=== PATIENT | male | born 1980 | race Caucasian/White ===

== ENCOUNTER 2019-09-05 12:59 | Emergency (ER) | payer OTHER ==
[2019-09-05] MEDS ORDERED: LIDOCAINE 1% W/ EPINEPHRINE 20 ML VIAL INJ ONE (13:20)
[2019-09-05] MEDS ORDERED: PLAIN PACKING STRIP 1 1 EA BTTL TOP ONE (13:27)
[2019-09-05 13:29] VITALS: BP 134/90; TEMP 100; O2SAT 96
[2019-09-05] MEDS ORDERED: CLINDAMYCIN HCL CAP 150 MG CAP PO ONE (13:32)
[2019-09-05] MEDS ORDERED: AMOXICILLIN & POT CLAVULANATE 875 MG TAB PO ONE (13:32)
[2019-09-05] MEDS ORDERED: cefTRIAXone SODIUM 1 GM VIAL IM ONE (13:32)
--- NOTE | 2019-09-05 13:41 | ED.PDOC ---
History of Present Illness - General Chief Complaint: Bite: Animal/Insect/Human Stated Complaint: Bug bite Time Seen by Provider: 09/05/19 13:03 Source: patient Exam Limitations: no limitations - History of Present Illness Initial Comments: The patient is a 38-year-old male presented emergency room secondary to erythema and swelling of the right arm around the right elbow. He was apparently stung by something 4 nights ago out on his porch. There is extending erythema proximally and distally. He does appear to be grossly neurovascularly intact. There is significant hardness in the area to indicate a possible abscess underlying. No drainage. He does have a low-grade fever of around 100 here. No nausea or vomiting. His primary care doctor wrote him for clindamycin which she has not started yet. Timing/Duration: other - 3 days Severity: moderate Improving Factors: nothing Worsening Factors: nothing Associated Symptoms: denies symptoms Allergies/Adverse Reactions: Allergies NO KNOWN ALLERGY Allergy (Verified 07/06/19 15:39) Home Medications: Ambulatory Orders Amoxicillin & Pot Clavulanate [Augmentin Tab] 875 mg PO BID #20 tab 09/05/19 Metformin HCl [Glucophage] 1,000 mg PO TID 09/05/19 Review of Systems - Review of Systems Constitutional: States: fever EENTM: States: no symptoms reported Respiratory: States: no symptoms reported Cardiology: States: no symptoms reported Gastrointestinal/Abdominal: States: no symptoms reported Genitourinary: States: no symptoms reported Musculoskeletal: States: see HPI Skin: States: see HPI Neurological: States: no symptoms reported Endocrine: States: no symptoms reported All other Systems: No Change from Baseline Past Medical History (General) - Patient Medical History Hx Asthma: No Hx Congestive Heart Failure: No Hx Pacemaker: No Hx Hypertension: No Hx Diabetes: Yes Hx Cancer: No Hx Hepatitis C: No Surgical History: no surgical history - Vaccination History Hx Tetanus, Diphtheria Vaccination: Yes Hx Influenza Vaccination: Yes Hx Pneumococcal Vaccination: No - Social History Hx Tobacco Use: Yes Hx Alcohol Use: Yes Hx Substance Use Treatment: No Hx Depression: No - Triage Comment ED Triage Comment: Right arm red, swollen, tender to touch, warm, and patient reports pain at >10 Family Medical History - Family History Mother Family History: Unknown Physical Exam - Physical Exam General Appearance: Alert, Comfortable, No apparent distress Eye Exam: bilateral normal Ears, Nose, Throat: hearing grossly normal, normal pharynx Neck: full range of motion Respiratory: no respiratory distress, no accessory muscle use Cardiovascular/Chest: normal peripheral pulses, no edema Peripheral Pulses: radial,right: 2+, radial,left: 2+ Gastrointestinal/Abdominal: other - Obese Rectal Exam: deferred Extremity: normal range of motion, no pedal edema, normal capillary refill Neurologic: deck hand II-XII nml as tested, alert, normal mood/affect, oriented x 3 Skin Exam: other - Erythema and swelling to the right upper extremity around the elbow. No evidence of any involvement of the elbow joint itself. Comments: Vital Signs - 24 hr 09/05/19 13:19 Temperature 100 F H Pulse Rate [ 97 H Left Brachial] Respiratory 22 Rate Blood Pressure 134/90 [Left Arm] O2 Sat by Pulse 96 Oximetry Progress - Progress Progress: 09/05/19 13:42 The patient is a 38-year-old male presented emergency room secondary to developing a right upper extremity abscess in the subcutaneous tissue over the right elbow. Incision and drainage was performed and quarter inch packing gauze was placed. This needs to be changed out each day when he showers. The patient already has clindamycin and he is to continue that medication. He is also going to be written for Augmentin for 10 days. He did receive a dose of Rocephin here as well. He does need to trace out the area of redness and make sure it is not progressing over the next few days. ER warnings are given for any worsening. A wound culture was performed. [email or web address] [id number] - Results/Orders Results/Orders: Procedure note: Risk and benefits were explained prior. Patient agrees to proceed prior. Initial needle localization done with an 18-gauge needle after cleaning with alcohol swab. Estimated 1 cc of pus obtained this way. Xylocaine with epinephrine x2 cc was used as a local anesthetic. 1 cm incision was made over site of maximal induration. Hemostats were used to spread underlying tissue. Approximately 7 cc of roly pus were expressed. Quarter-inch packing gauze was placed while for continued drainage and dressing was applied. Estimated blood loss is probably 1 cc. Patient tolerated the procedure well. Wound culture is being sent. Departure - Departure Clinical Impression: Abscess Disposition: Discharge to Home or Self Care Condition: Fair Departure Forms: ED Discharge - Pt. Copy, Patient Portal Self Enrollment Instructions: Abscess Incision and Drainage (DC) Diet: regular diet Activity: increase activity as tolerated Referrals: SHER PHAM [Primary Care Provider] - 1-2 Weeks Prescriptions: Amoxicillin & Pot Clavulanate [Augmentin Tab] 875 mg PO BID #20 tab Home Medications: Ambulatory Orders Amoxicillin & Pot Clavulanate [Augmentin Tab] 875 mg PO BID #20 tab 09/05/19 Metformin HCl [Glucophage] 1,000 mg PO TID 09/05/19 Additional Instructions: The patient is a 38-year-old male presented emergency room secondary to developing a right upper extremity abscess in the subcutaneous tissue over the right elbow. Incision and drainage was performed and quarter inch packing gauze was placed. This needs to be changed out each day when he showers. The patient already has clindamycin and he is to continue that medication. He is also going to be written for Augmentin for 10 days. He did receive a dose of Rocephin here as well. He does need to trace out the area of redness and make sure it is not progressing over the next few days. ER warnings are given for any worsening. A wound culture was performed.
== END 2019-09-05 14:00 | disposition home or self-care (01) ==
LOC: ER 12:59
DX: L02.413 Cutaneous abscess of right upper limb (principal); E11.9 Type 2 diabetes mellitus without complications; F17.200 Nicotine dependence, unspecified, uncomplicated
CPT/HCPCS: 87070; 87077; 87186; J0696